=== PATIENT | female | born 1955 | race Caucasian/White ===

== ENCOUNTER 2022-02-18 11:24 | Outpatient (RCR) | payer MEDICARE | END 2022-02-19 | disposition home or self-care (01) | PROVIDERS: ATTEND Orthopaedic Surgery | DX: S93.402D Sprain of unspecified ligament of left ankle, subsequent encounter (principal); I10 Essential (primary) hypertension; W18.40XD Slipping, tripping and stumbling without falling, unspecified, subsequent encounter ==

== ENCOUNTER 2022-02-27 10:22 | Outpatient (RCR) | payer MEDICARE | END 2022-03-22 | disposition home or self-care (01) | PROVIDERS: ATTEND Orthopaedic Surgery | DX: S93.402D Sprain of unspecified ligament of left ankle, subsequent encounter (principal); I10 Essential (primary) hypertension; X58.XXXD Exposure to other specified factors, subsequent encounter ==

== ENCOUNTER → 2022-07-22 | Outpatient (RCR) | payer MEDICARE | END | disposition home or self-care (01) | PROVIDERS: ATTEND Orthopaedic Surgery | DX: M25.512 Pain in left shoulder (principal); I10 Essential (primary) hypertension; Z96.612 Presence of left artificial shoulder joint ==

== ENCOUNTER 2022-08-19 10:54 | Outpatient (RCR) | payer MEDICARE | END 2022-08-22 | disposition home or self-care (01) | PROVIDERS: ATTEND Orthopaedic Surgery | DX: M25.512 Pain in left shoulder (principal); I10 Essential (primary) hypertension; Z96.612 Presence of left artificial shoulder joint ==

== ENCOUNTER 2022-09-09 11:57 | Outpatient (RCR) | payer MEDICARE | END 2022-09-22 | disposition home or self-care (01) | PROVIDERS: ATTEND Orthopaedic Surgery | DX: M25.512 Pain in left shoulder (principal); I10 Essential (primary) hypertension; Z96.612 Presence of left artificial shoulder joint ==

== ENCOUNTER 2022-09-30 16:21 | Outpatient (RCR) | payer MEDICARE | END 2022-09-30 16:22 | disposition home or self-care (01) | PROVIDERS: ATTEND Orthopaedic Surgery | DX: M25.512 Pain in left shoulder (principal); I10 Essential (primary) hypertension; Z96.612 Presence of left artificial shoulder joint ==

== ENCOUNTER 2023-06-14 13:41 | Emergency (ER) | payer MEDICARE, MEDICAID ==
[~2023-06-14] VITALS: Ht 157.5 cm; Wt 86.2 kg
--- NOTE | 2023-06-14 14:00 | ED Fall/Injury ---
General Chief Complaint: Back Problems Stated Complaint: FALL/BACK PAIN History of Present Illness Date Seen by Provider: Jun 14, 2023 Time Seen by Provider: 14:00 Initial Comments 68-year-old female presents with right anterior rib pain following a fall. Patient reports that she was up on a counter and when she went to set she Did not scoot far enough and fell. She scraped of the back of her leg Scraped upper back little bit but main pain is in the right anterior ribs. This happened just prior to arrival. Allergies and Home Medications Allergies Coded Allergies: prochlorperazine (Verified Allergy, Unknown, 06/14/23) Patient Home Medication List Home Medication List Reviewed: Yes Review of Systems Review of Systems Constitutional: no symptoms reported Eyes: No Symptoms Reported Ears, Nose, Mouth, Throat: no symptoms reported Gastrointestinal: no symptoms reported Musculoskeletal: see HPI Skin: see HPI Past Afidjdo-Sxcyhw-Oeaxsy Hx Patient Social History Tobacco Use?: No Use of E-Cig and/or Vaping dev: No Substance use?: No Alcohol Use?: No Pt feels they are or have been: No Physical Exam Vital Signs Vital Signs - First Documented 06/14/23 13:46 Pulse 66 Resp 17 B/P (MAP) 123/61 (81) Pulse Ox 95 O2 Delivery Room Air Capillary Refill : Height, Weight, BMI Height: '" Weight: lbs. oz. kg; BMI Method: General Appearance: WD/WN, no apparent distress Cardiovascular: normal peripheral pulses, no edema Respiratory: lungs clear, normal breath sounds, other (Tenderness right an terior ribs) Extremities: normal range of motion, non-tender Neurologic/Psychiatric: alert, normal mood/affect, oriented x 3 Skin: other Progress/Results/Core Measures Results/Orders My Orders Orders - VANDANA HOPKINS DO Ribs/Unilateral With Chest (06/14/23 13:59) Vital Signs/I&O 06/14/23 13:46 Pulse 66 Resp 17 B/P (MAP) 123/61 (81) Pulse Ox 95 O2 Delivery Room Air Progress Progress Note : Progress Note Patient's x-ray was ordered, reviewed with initial interpretation negative by me with final interpretation per radiology report. Patient has no acute findings noted on x-ray. Discussed with her supportive care including topical lidocaine and topical diclofenac. She is stable and discharged home. Diagnostic Imaging Diagonstic Imaging: Xray Plain Films/CT/US/NM/MRI: chest Comments Date of Exam:06/14/23 RIBS/UNILATERAL WITH CHEST INDICATION: Right rib pain. EXAMINATION: Three views of the right ribs and AP view of the chest are obtained. FINDINGS: Lungs are clear. There are no effusions or pneumothoraces. There are no displaced rib fractures seen. IMPRESSION: Unremarkable chest and right ribs. Reviewed: Reviewed by Me, Reviewed/Discussed Departure Impression Primary Impression: Fall Qualified Codes: W19.XXXA - Unspecified fall, initial encounter Additional Impression: Contusion of rib on right side Qualified Codes: S20.211A - Contusion of right front wall of thorax, initial encounter Disposition: HOME, SELF-CARE Condition: Stable Departure-Patient Inst. Referrals: NO,LOCAL PHYSICIAN (PCP/Family) Primary Care Physician Patient Instructions: Bruised Rib, Minor Contusion ED Add. Discharge Instructions: 4% topical lidocaine with menthol cream gel or patch use as directed on package. Voltaren/diclofenac cream or gel use as directed on package. Tylenol or ibuprofen as needed for discomfort. Ice 3-4 times daily for the next 24 hours then warm moist heat as needed. All discharge instructions reviewed with patient and/or family. Voiced understanding. VANDANA HOPKINS DO Jun 14, 2023 14:00
--- NOTE | 2023-06-14 14:38 | Diagnostic Imaging Report ---
INDICATION: Right rib pain. EXAMINATION: Three views of the right ribs and AP view of the chest are obtained. FINDINGS: Lungs are clear. There are no effusions or pneumothoraces. There are no displaced rib fractures seen. IMPRESSION: Unremarkable chest and right ribs. Dictated by: Dictated on workstation # [id number]
[2023-06-14 14:54] VITALS: BP 123/61
== END 2023-06-14 14:54 | disposition home or self-care (01) ==
LOC: EDUNIT# 13:41 → ER 13:44
DX: S20.211A Contusion of right front wall of thorax, initial encounter (principal); W19.XXXA Unspecified fall, initial encounter
CPT/HCPCS: 71101